=== PATIENT | male | born 1930 | race Caucasian/White ===

== ENCOUNTER 2019-01-14 14:45 | Emergency (ER) | payer MEDICARE, OTHER ==
[~2019-01-14] VITALS: Ht 175 cm; Wt 79.0 kg
[~2019-01-14 14:45] MED LIST: ASP81TEC; MULT1TAB63; NF-ESOM40C
[2019-01-14] MEDS ORDERED: TETANUS,DIPTH,PERTUSS P/F (BOOSTRIX) 0.5 ML VIAL IM ONE (15:00)
--- NOTE | 2019-01-14 15:04 | ED Integumentary General ---
General Chief Complaint: Bite-Animal/Human/Insect Stated Complaint: DOG BITE Source: patient, RN/MD (Dr. Romano) Exam Limitations: no limitations History of Present Illness Date Seen by Provider: Jan 14, 2019 Time Seen by Provider: 14:50 Initial Comments Patient presents to ER by private conveyance from Dr. Romano's clinic with c hief complaint that about one and the afternoon he was at the [employer] and some other patrons little lack dog bit him on the finger causing 2 small cuts on his left index finger. He went to the doctor's office but they were out of tetanus vaccine and help apartment recommended rabies vaccination and immunoglobulin since the dog could not be located. No police report was made. The patient is not immunocompromised, diabetic and does not have a prescription for antibiotics yet. He takes aspirin but no blood thinners. Allergies and Home Medications Allergies Coded Allergies: NKANo Known Allergies (Verified Allergy, Unknown, 08/09/06) Patient Home Medication List Home Medication List Reviewed: Yes Review of Systems Review of Systems Constitutional: No chills, No diaphoresis EENTM: No ear discharge, No ear pain Respiratory: No cough, No short of breath Cardiovascular: No chest pain, No edema Gastrointestinal: No abdominal pain, No constipation Past Sdzjcvj-Yhpprk-Mzxiff Hx Patient Social History Alcohol Use: Occasionally Uses Recreational Drug Use: No Smoking Status: Current Everyday Smoker Type Used: Cigars (1.5/day) Recent Foreign Travel: No Contact w/Someone Who Travel: No Past Medical History Reproductive Disorders: No Physical Exam Vital Signs Vital Signs - First Documented 01/14/19 15:00 Temp 37.0 Pulse 86 Resp 20 B/P (MAP) 217/100 Pulse Ox 95 Capillary Refill : General Appearance: WD/WN, no apparent distress HEENT: pharynx normal Cardiovascular: normal peripheral pulses, regular rate, rhythm, no edema Respiratory: no respiratory distress, no accessory muscle use Extremities: other (no tendinopathy from the left hand and fingers.) Neurologic/Psychiatric: no motor/sensory deficits, alert, normal mood/affect, oriented x 3 Skin: other (left index finger has a shaped laceration on the palmar side approximately 1 cm long and a 2 cm linear laceration laterally both of which are approximated clean dry and dressed. Hemostatic. No foreign debris seen. Just through the dermis.) Procedures/Interventions Progress The skin was cleaned thoroughly using alcohol wipes and then infiltrated around both of the wounds on his left index finger approximately 1.5 cc of rabies immunoglobulin. The remainder of the 5.3 cc was placed in his right gluteal muscle. Skin was cleaned with alcohol and using his Z track method and withdrawal not demonstrating we injected the IgG and the patient tolerated the procedure well. Progress/Results/Core Measures Results/Orders My Orders Orders - ERIK GAMING Dipht,Pertuss(Acell),Tet Adult (Boostrix (01/14/19 15:00) Rabies Vaccine Human Dipl Cell (Rabavert (01/14/19 15:15) Rabies Immune Globulin/Pf Inj (Hyperrab (01/14/19 15:15) Amlodipine Tablet (Norvasc Tablet) (01/14/19 15:30) Medications Given in ED Current Medications Medications Dose Ordered Sig/Hoa Route Start Time Stop Time Status Last Admin Dose Admin Diphtheria/ Tetanus/Acell Pertussis 0.5 ml ONCE ONCE IM 01/14/19 15:00 01/14/19 15:01 DC 01/14/19 15:47 0.5 ML Rabies Vaccine Human Diploid Cell 1 ml ONCE ONCE IM 01/14/19 15:15 01/14/19 15:16 DC 01/14/19 15:48 1 ML Vital Signs/I&O 01/14/19 15:00 Temp 37.0 Pulse 86 Resp 20 B/P (MAP) 217/100 Pulse Ox 95 Progress Progress Note #1: Time: 15:10 Progress Note Rabies vaccination in the deltoid and IgG will be placed in the finger and the rest and his other deltoid. Outpatient orders for follow-up day 3, 7 and 14 rabies vaccinations ordered. Tetanus vaccination given. Progress Note #2: Time: 15:24 Progress Note The patient's blood pressure is significantly elevated several. Says that he just had an appointment [address] Romano and his blood pressure was just fine on the 5 mg of amlodipine. He was told by Dr. Romano it is probably the excitement that caused his blood pressure to elevate. Give an extra dose of amlodipine 10 mg and follow-up in one to 2 weeks with primary care. Departure Impression Primary Impression: Dog bite Qualified Codes: W54.0XXA - Bitten by dog, initial encounter Additional Impression: Rabies, need for prophylactic vaccination against Disposition: 01 HOME, SELF-CARE Condition: Stable Departure-Patient Inst. Decision time for Depature: 15:51 Referrals: LANIE ROMANO DO Primary Care Physician Patient Instructions: DOG BITE, Rubella Vaccine Add. Discharge Instructions: If the dog can be discovered and watched then you do not need to complete the vaccination series unless the dog begins to demonstrate symptoms of rabies. Otherwise plan to complete vaccination series by calling the infusion center at the number listed on top of the order sheet to get a repeat vaccination on day 3, day 7 and day 14. Tylenol and ibuprofen for pain. If you have significant swelling keep your hand raised above the level of your heart. Follow-up with primary care for questions. All discharge instructions reviewed with patient and/or family. Voiced understanding. ERIK GAMING Jan 14, 2019 15:04
[2019-01-14] MEDS ORDERED: RABIES VACCINE HUMAN DIPL CELL 1 ML/2.5 UNITS SYR IM ONE (15:15)
[2019-01-14] MEDS ORDERED: RABIES IMMUNE GLOBULIN 300 UNIT/ML 5 ML (HyperRAB) IM ONE (15:15)
[2019-01-14] MEDS ORDERED: AMLO5TAB9 (15:22)
[2019-01-14] MEDS ORDERED: amLODIPine 5 MG (NORVASC) TAB PO ONE (15:30)
[2019-01-14 16:11] VITALS: BP 200/89
== END 2019-01-14 16:11 | disposition home or self-care (01) ==
LOC: EDUNIT# 14:45 → ER 14:46
DX: S61.251A Open bite of left index finger without damage to nail, initial encounter (principal); F17.290 Nicotine dependence, other tobacco product, uncomplicated; Z20.3 Contact with and (suspected) exposure to rabies; Z23 Encounter for immunization; W54.0XXA Bitten by dog, initial encounter
CPT/HCPCS: 90375; 90471; 90675; 90715; 96372

== ENCOUNTER 2019-01-28 12:51 | Outpatient (RCR) | payer MEDICARE, OTHER ==
[2019-01-17 12:57] VITALS: BP 192/84
[2019-01-21 13:10] VITALS: BP 193/85
[~2019-01-28] VITALS: Wt 79.0 kg
[~2019-01-28 12:51] MED LIST changes: +AMLO5TAB9; +RABIES VACCINE HUMAN DIPL CELL 1 ML/2.5 UNITS SYR INJ ONE; +RABIES VACCINE HUMAN DIPL CELL 1 ML/2.5 UNITS SYR ONE
[2019-01-28 13:05] VITALS: BP 189/81
[2019-01-28] MEDS ORDERED: RABIES VACCINE HUMAN DIPL CELL 1 ML/2.5 UNITS SYR INJ ONE (14:00)
== END 2019-01-28 13:05 | disposition home or self-care (01) ==
LOC: SDC 12:51
PROVIDERS: ATTEND Emergency Medicine
DX: S61.251A Open bite of left index finger without damage to nail, initial encounter (principal); Z20.3 Contact with and (suspected) exposure to rabies; Z23 Encounter for immunization; W54.0XXA Bitten by dog, initial encounter
CPT/HCPCS: 90471; 90675